=== PATIENT | male | born 1990 | race Caucasian/White ===

== ENCOUNTER 2020-12-17 05:13 | Emergency (ER) | payer BC ==
[2020-12-17] MEDS ORDERED: Sodium Chloride 0.9% 1000 ML 1,000 ML IV STA (06:44)
--- NOTE | 2020-12-17 06:51 | ERPHSYRPT ---
- History of Present Illness Historian: patient Exam Limitations: no limitations Timing/Duration: day(s) Activities at Onset: none Quality: aching Abdominal Pain Onset Location: periumbilical Pain Radiation: no radiation Severity of Pain-Max: mild Severity of Pain-Current: mild Modifying Factors: Improves With: nothing Associated Symptoms: denies symptoms, No chest pain, No diarrhea, No fever/ch ills, No headache, No shortness of breath, No syncope, No vomiting Previous symptoms: no prior history <ABRIL BEAVER - Last Filed: 12/17/20 06:56> <DAMIAN LOCO - Last Filed: 12/17/20 19:09> - History of Present Illness Time Seen by Provider: 12/17/20 06:30 Physician History: Patient is a 30-year-old male presents to our emergency department for evaluation of abdominal pain that has been constant for the past 2 days. No associated nausea or vomiting. No diarrhea. No rash. No fever. Pain described as an ache that is localized to the periumbilical region. Pain is minimal at this time. Patient declined pain medication. Patient denies history of the same. No associated chest pain. No shortness of breath. Patient states otherwise healthy. He voices no other complaints or concerns at this time. (ABRIL BEAVER) Assumed care of pt at 7:00AM w sharp epigastric pain x 2 days. Pt painfree at present wo intervention. He denies N/V/D/fever/melena /hematochezia/dysuria/hematuria/cough/coryza. Pt in NAD Lungs CTA Heart RRR woM Abdomen Good BS/soft/NTTP Neuro WNL (DAMIAN LOCO) Allergies/Adverse Reactions: No Known Drug Allergies Allergy (Unverified 12/17/20 06:38) Home Medications: No Reportable Medications [No Reported Medications] 12/17/20 [History] - Review of Systems Constitutional: No Symptoms, No Fever, No Chills Eyes: No Symptoms Ears, Nose, & Throat: No Symptoms Respiratory: No Symptoms, No Cough, No Dyspnea Cardiac: No Symptoms, No Chest Pain, No Edema, No Syncope Abdominal/Gastrointestinal: No Symptoms, No Abdominal Pain, No Nausea, No Vomiting, No Diarrhea Genitourinary Symptoms: No Symptoms, No Dysuria Musculoskeletal: No Symptoms, No Back Pain, No Neck Pain Skin: No Symptoms, No Rash Neurological: No Symptoms, No Dizziness, No Focal Weakness, No Sensory Changes Psychological: No Symptoms Endocrine: No Symptoms Hematologic/Lymphatic: No Symptoms Immunological/Allergic: No Symptoms All Other Systems: Reviewed and Negative <ABRIL BEAVER Last Filed: 12/17/20 06:56> - Past Medical History Pertinent Past Medical History: No Neurological History: No Pertinent History ENT History: No Pertinent History Cardiac History: No Pertinent History Respiratory History: No Pertinent History Endocrine Medical History: No Pertinent History Musculoskeletal History: No Pertinent History GI Medical History: No Pertinent History History: No Pertinent History Psycho-Social History: No Pertinent History Male Reproductive Disorders: No Pertinent History - Past Surgical History Past Surgical History: No Neuro Surgical History: No Pertinent History Cardiac: No Pertinent History Respiratory: No Pertinent History Gastrointestinal: No Pertinent History Genitourinary: No Pertinent History Musculoskeletal: No Pertinent History Male Surgical History: No Pertinent History - Social History Drug Use: none <KOFI BEAVERLANDO Filed: 12/17/20 06:56> - Physical Exam General Appearance: no apparent distress, alert Eye Exam: PERRL/EOMI, eyes nml inspection Ears, Nose, Throat Exam: normal ENT inspection, pharynx normal, moist mucous membranes Neck Exam: normal inspection, non-tender, supple, full range of motion Respiratory Exam: normal breath sounds, lungs clear, No respiratory distress Cardiovascular Exam: regular rate/rhythm, normal heart sounds Gastrointestinal/Abdomen Exam: soft, other (Minimal periumbilical abdominal tenderness. Patient has no testicular pain or tenderness.), No tenderness, No mass Back Exam: normal inspection, normal range of motion, No CVA tenderness, No vertebral tenderness Extremity Exam: normal inspection, normal range of motion, pelvis stable Neurologic Exam: alert, oriented x 3, cooperative, normal mood/affect, nml cerebellar function, sensation nml, No motor deficits Skin Exam: normal color, warm, dry Lymphatic Exam: adenopathy SpO2 Interpretation: normal SpO2: 100 O2 Delivery: Room Air <ABRIL BEAVER Filed: 12/17/20 06:56> - Nursing Vital Signs Nursing Vital Signs: Initial Vital Signs Temperature 97.8 F 12/17/20 06:13 Pulse Rate 73 12/17/20 06:13 Respiratory Rate 18 12/17/20 06:13 Blood Pressure 131/80 12/17/20 06:13 O2 Sat by Pulse Oximetry 100 12/17/20 06:13 Pain Scale Pain Intensity 0 - Course Nursing assessment & vital signs reviewed: Yes <ABRIL BEAVER - Last Filed: 12/17/20 06:56> - CT Exams Abdomen/Pelvis CT Interpretation: Discussed w/radiologist (Possible pericholecystic fluid) - Radiology Ultrasound Exam Gallbladder Ultrasound: discussed w/radiologist (Gallbladder wall thickening) <DAMIAN LOCO - Last Filed: 12/17/20 19:09> Ordered Tests: Active Orders 24 hr Category Date Time Status IV Insertion STAT Care 12/17/20 06:44 Completed ABDOMEN AND PELVIS W CONTRAST [CT] Routine Exams 12/17/20 08:05 Completed ABDOMINAL-LIMITED [US] Stat Exams 12/17/20 09:15 Completed CBC W DIFF Stat Lab 12/17/20 07:10 Completed CMP Stat Lab 12/17/20 07:10 Completed LIPASE Stat Lab 12/17/20 07:10 Completed TROPONIN Q3H Lab 12/17/20 07:10 Completed TROPONIN Q3H Lab 12/17/20 09:58 Completed UA W/RFX UR CULTURE Stat Lab 12/17/20 07:06 Completed Medication Summary Discontinued Medications Generic Name Dose Route Start Last Admin Trade Name Freq PRN Reason Stop Dose Admin Sodium Chloride 1,000 mls @ 999 mls/hr 12/17/20 06:44 12/17/20 08:14 Sodium Chloride 0.9% 1000 Ml IV 12/17/20 07:44 Infused .Q1H1M STA Infusion Sodium Chloride Confirm 12/17/20 07:12 Sodium Chloride 0.9% 1000 Ml Administered 12/17/20 07:13 Dose 1,000 mls @ ud .ROUTE .STK-MED ONE Lab/Rad Data: Laboratory Result Diagrams 12/17/20 07:10 12/17/20 07:10 Laboratory Results 12/17/20 12/17/20 12/17/20 Range/Units 09:58 07:10 07:10 WBC (4.0-10.5) K/mm3 RBC (4.1-5.6) M/mm3 Hgb (12.5-18.0) gm/dl Hct (42-50) % MCV (78-100) fl MCH (26-32) pg MCHC (32-36) g/dl RDW (11.5-14.0) % Plt Count (150-450) K/mm3 MPV (7.5-11.0) fl Gran % (36.0-66.0) % Eos # (Auto) (0-0.5) Absolute Lymphs (auto) (1.0-4.6) Absolute Monos (auto) (0.0-1.3) Lymphocytes % (24.0-44.0) % Monocytes % (0.0-12.0) % Eosinophils % (0.00-5.0) % Basophils % (0.0-0.4) % Absolute Granulocytes (1.4-6.9) Basophils # (0-0.4) Sodium 139 (137-145) mmol/L Potassium 4.2 (3.5-5.1) mmol/L Chloride 102 (98-107) mmol/L Carbon Dioxide 30 (22-30) mmol/L Anion Gap 11.6 (5-15) MEQ/L BUN 14 (9-20) mg/dL Creatinine 0.96 (0.66-1.25) mg/dL Estimated GFR > 60.0 ML/MIN Glucose 109 H (74-106) mg/dL Calcium 9.5 (8.4-10.2) mg/dL Total Bilirubin 0.50 (0.2-1.3) mg/dL AST 23 (17-59) U/L ALT 13 (0-50) U/L Alkaline Phosphatase 62 (38-126) U/L Troponin I < 0.012 < 0.012 (0.000-0.034) ng/mL Serum Total Protein 7.1 (6.3-8.2) g/dL Albumin 4.4 (3.5-5.0) g/dL Lipase 67 (23-300) U/L Urine Color (YELLOW) Urine Appearance (CLEAR) Urine pH (5-6) Ur Specific Amelia (1.005-1.025) Urine Protein (Negative) Urine Ketones (NEGATIVE) Urine Blood (0-5) Lamonte/ul Urine Nitrite (NEGATIVE) Urine Bilirubin (NEGATIVE) Urine Urobilinogen (0-1) mg/dL Ur Leukocyte Esterase (NEGATIVE) Urine WBC (Auto) (0-5) /HPF Urine RBC (Auto) (0-2) /HPF U Epithel Cells (Auto) (FEW) /HPF Urine Bacteria (Auto) (NEGATIVE) /HPF Urine Culture Reflexed (NO) Urine Glucose (NEGATIVE) mg/dL 12/17/20 12/17/20 Range/Units 07:10 07:06 WBC 9.9 (4.0-10.5) K/mm3 RBC 5.05 (4.1-5.6) M/mm3 Hgb 14.9 (12.5-18.0) gm/dl Hct 43.6 (42-50) % MCV 86.3 (78-100) fl MCH 29.5 (26-32) pg MCHC 34.2 (32-36) g/dl RDW 12.4 (11.5-14.0) % Plt Count 218 (150-450) K/mm3 MPV 9.6 (7.5-11.0) fl Gran % 68.5 H (36.0-66.0) % Eos # (Auto) 0.07 (0-0.5) Absolute Lymphs (auto) 2.13 (1.0-4.6) Absolute Monos (auto) 0.90 (0.0-1.3) Lymphocytes % 21.5 L (24.0-44.0) % Monocytes % 9.1 (0.0-12.0) % Eosinophils % 0.7 (0.00-5.0) % Basophils % 0.2 (0.0-0.4) % Absolute Granulocytes 6.80 (1.4-6.9) Basophils # 0.02 (0-0.4) Sodium (137-145) mmol/L Potassium (3.5-5.1) mmol/L Chloride (98-107) mmol/L Carbon Dioxide (22-30) mmol/L Anion Gap (5-15) MEQ/L BUN (9-20) mg/dL Creatinine (0.66-1.25) mg/dL Estimated GFR ML/MIN Glucose (74-106) mg/dL Calcium (8.4-10.2) mg/dL Total Bilirubin (0.2-1.3) mg/dL AST (17-59) U/L ALT (0-50) U/L Alkaline Phosphatase (38-126) U/L Troponin I (0.000-0.034) ng/mL Serum Total Protein (6.3-8.2) g/dL Albumin (3.5-5.0) g/dL Lipase (23-300) U/L Urine Color YELLOW (YELLOW) Urine Appearance CLEAR (CLEAR) Urine pH 5.0 (5-6) Ur Specific Amelia 1.012 (1.005-1.025) Urine Protein NEGATIVE (Negative) Urine Ketones NEGATIVE (NEGATIVE) Urine Blood NEGATIVE (0-5) Lamonte/ul Urine Nitrite NEGATIVE (NEGATIVE) Urine Bilirubin NEGATIVE (NEGATIVE) Urine Urobilinogen NORMAL (0-1) mg/dL Ur Leukocyte Esterase NEGATIVE (NEGATIVE) Urine WBC (Auto) NONE (0-5) /HPF Urine RBC (Auto) NONE (0-2) /HPF U Epithel Cells (Auto) NONE (FEW) /HPF Urine Bacteria (Auto) NONE (NEGATIVE) /HPF Urine Culture Reflexed NO (NO) Urine Glucose NEGATIVE (NEGATIVE) mg/dL - Progress Counseled pt/family regarding: lab results, diagnosis, need for follow-up, rad results <DAMIAN LOCO - Last Filed: 12/17/20 19:09> - Progress Progress Note: 12/17/20 11:31 Pt painfree through entire stay (DAMIAN LOCO) <ABRIL BEAVER - Last Filed: 12/17/20 06:56> - Departure Departure Disposition: Home Critical Care Time: No <DAMIAN LOCO - Last Filed: 12/17/20 19:09> - Departure Clinical Impression: Abdominal pain Condition: Stable Referrals: DERREK MAYER [Primary Care Provider] - Instructions: Acute Abdomen (Belly Pain), Adult (DC) Additional Instructions: Follow up with your family MD Return to ER for increasing pain or temperature greater than 100.5 Forms: Work/School Release Form
[2020-12-17] MEDS ORDERED: Sodium Chloride 0.9% 1000 ML 1,000 ML ONE (07:12)
[2020-12-17 07:27] LABS: BASOPHIL % 0.2 % (0.0-0.4); Basophil (Absolute #) 0.02 (0-0.4); Eosinophil % 0.7 % (0.00-5.0); Eosinophil (Absolute #) 0.07 (0-0.5); Hematocrit 43.6 % (42-50); Hemoglobin 14.9 gm/dl (12.5-18.0); Lymphocyte (Absolute #) 2.13 (1.0-4.6); Lymphocytes % 21.5 % (24.0-44.0); Mean Cell Volume 86.3 fl (78-100); Mean Corpuscular Hemoglobin 29.5 pg (26-32); Mean Corpuscular Hgb Concent. 34.2 g/dl (32-36); Mean Platelet Volume 9.6 fl (7.5-11.0); Monocytes % 9.1 % (0.0-12.0); Neutrophil % 68.5 % (36.0-66.0); Platelet Count 218 K/mm3 (150-450); Red Blood Count 5.05 M/mm3 (4.1-5.6); Red Cell Distribution Width 12.4 % (11.5-14.0); White Blood Count 9.9 K/mm3 (4.0-10.5)
[2020-12-17 07:32] LABS: ALBUMIN 4.4 g/dL (3.5-5.0); ALKALINE PHOSPHATASE 62 U/L (38-126); ANION GAP 11.6 MEQ/L (5-15); BLOOD UREA NITROGEN 14 mg/dL (9-20); CHLORIDE 102 mmol/L (98-107); Calcium 9.5 mg/dL (8.4-10.2); Carbon Dioxide 30 mmol/L (22-30); Creatinine 1 0.96 mg/dL (0.66-1.25); EST GLOMERULAR FILTRATION RATE > 60.0 ML/MIN; Glucose 109 mg/dL (74-106); LIPASE 67 U/L (23-300); Potassium 4.2 mmol/L (3.5-5.1); SGOT/AST 23 U/L (17-59); SGPT/ALT 13 U/L (0-50); SODIUM 139 mmol/L (137-145); Total Protein 7.1 g/dL (6.3-8.2)
[2020-12-17 07:40] LABS: Appearance CLEAR (CLEAR); Bilirubin NEGATIVE (NEGATIVE); Blood NEGATIVE Ery/ul (0-5); Glucose NEGATIVE (NEGATIVE); Ketones NEGATIVE (NEGATIVE); Leukocyte Esterase NEGATIVE (NEGATIVE); Nitrite NEGATIVE (NEGATIVE); Protein,Urine Dip NEGATIVE (Negative); Specific Gravity 1.012 (1.005-1.025); Urobilinogen NORMAL mg/dL (0-1)
--- NOTE | 2020-12-17 09:13 | XRAY ---
Exam: CT of the abdomen and pelvis with IV contrast from 12/17/2020. CTDI: 2.64 mGy Comparison: None. Indication: 30-year-old male with periumbilical abdominal pain for 2 days. Technique: Post-IV contrast axial images were obtained through the abdomen and pelvis during automated injection of 80 cc of Isovue 370 contrast material. No oral contrast was given. Reconstructed coronal and sagittal images were created and reviewed. Findings: The visualized lung bases appear clear. I note that the patient is quite thin with a paucity of intraperitoneal fat. The liver appears of unremarkable size and reveals no focal mass or intrahepatic biliary duct distention. The gallbladder is distended and reveals no dense calcifications within it. However, there appears to be a small amount of pericholecystic fluid around the gallbladder wall. Correlate clinically regarding cholecystitis. I see no other evidence of free intraperitoneal fluid within the abdomen or pelvis. The spleen is of normal size and reveals no focal mass. No definite abnormality of the pancreas is seen. The adrenal glands appear unremarkable. The kidneys appear of normal size and reveal no calculi, mass, or hydronephrosis. Both kidneys function on delay images. The opacified ureters appear unremarkable. No definite abnormality of the urinary bladder is seen. The abdominal aorta appears of normal diameter revealing no aneurysm. No abnormal retroperitoneal lymphadenopathy is seen. There is no free intraperitoneal air or bowel containing ventral hernia. Specifically, the region of the umbilicus appears unremarkable. The patient is again noted to be very thin. The bowel appears nonobstructed. Some scattered stool is seen throughout the colon. Full identification of the appendix is difficult because of the paucity of intraperitoneal fat. I believe I can see a small amount of air within portions of the appendiceal lumen which appears unremarkable. No pelvic mass, abnormal pelvic lymphadenopathy, or free fluid is seen. The urinary bladder, seminal vesicles, and prostate gland appear unremarkable. Some nonspecific postinflammatory lymph nodes are seen within each groin. The skeleton reveals no acute fracture or aggressive bone lesion. Minimal hypertrophic change of the L5-S1 facet joints is seen. Impression: 1. The gallbladder is normally distended and reveals no dense calcifications within it. However, I note a small amount of pericholecystic fluid external to the gallbladder wall. Correlate clinically regarding cholecystitis. No biliary duct distention is seen. 2. The bowel gas pattern appears unremarkable with scattered colonic stool. There is no evidence of bowel obstruction or bowel thickening. 3. Because of the paucity of intraperitoneal fat, full delineation of the appendix is difficult by CT due to crowding of normal soft tissue structures. However, I believe a portion of the aerated appendix is seen within the right lower quadrant and appears unremarkable. No other secondary findings of appendicitis are seen. 4. No other significant intra-abdominal or pelvic process is seen.
[2020-12-17 10:13] VITALS: BP 121/77; O2SAT 99
--- NOTE | 2020-12-17 11:26 | XRAY ---
Exam: Limited upper abdominal ultrasound from 12/17/2020. Comparison: CT of the abdomen and pelvis with IV contrast from 12/17/2020. Indication: 30-year-old male with abnormal CT. Findings: The gallbladder is distended and reveals a diffusely thickened gallbladder wall measuring up to 3.6 mm in diameter. I do not see any definite pericholecystic fluid. It is possible that the suspected fluid around the gallbladder wall on the earlier CT actually represented subserosal edema within the outer aspect of the gallbladder wall simulating pericholecystic fluid. I see no intraluminal gallstones. The proximal common bile duct measures 3.9 mm which is normal. No intrahepatic biliary duct distention is seen. The visualized portions of the liver appear unremarkable. There is normal color blood flow within the main portal vein toward the liver. The pancreas appears grossly unremarkable. The right kidney measures 9.8 cm x 4.0 cm x 4.2 cm. No right-sided renal mass or hydronephrosis is seen. The renal cortical echogenicity and thickness appear unremarkable. Impression: 1. The ultrasound confirms the presence of gallbladder wall thickening measuring up to 3.6 mm in diameter. See above. This is abnormal, but nonspecific. Acute or chronic cholecystitis and acalculus cholecystitis are within the differential diagnosis. Other less likely possibilities include hepatitis, hepatic cirrhosis, and hypoalbuminemia. 2. The remainder of the limited upper abdominal ultrasound appears unremarkable.
[2020-12-17 11:34] VITALS: PULSE 56
== END 2020-12-17 11:38 | disposition home or self-care (01) ==
LOC: ED 05:13
DX: R10.9 Unspecified abdominal pain (principal)
CPT/HCPCS: 36000; 36415; 74177; 76705; 80053; 81001; 83690; 84484; 85025; 99284